=== PATIENT | female | born 1980 | race Caucasian/White ===

== ENCOUNTER 2018-10-14 05:52 | Day surgery (SDC) | payer BC ==
[2018-10-13 15:32] VITALS: BMI 28.1
[~2018-10-14] VITALS: Ht 160 cm; Wt 73.1 kg
[2018-10-14] VITALS (11 sets, daily range): BP systolic 102–120; BP diastolic 54–77; PULSE 64–98; RESP 11–20; Ht 160 cm; Wt 73.1 kg
[~2018-10-14 05:52] MED LIST: MULTI PO
[2018-10-14] MEDS ORDERED: SOD CHLORIDE 0.9% 1,000 ML IV ONE (06:00)
[2018-10-14] MEDS ORDERED: CEFAZOLIN 2 GM/50 ML (PMX) 50 ML IVPB SCH (06:00)
[2018-10-14] MEDS ORDERED: BUPIVACAINE 0.25% (MPF) 30 ML INJ ONE (06:34)
--- NOTE | 2018-10-14 07:35 | PREAC ---
Date/Time of Note Date/Time of Note DATE: 10/14/18 TIME: 07:34 Anesthesia Eval and Record Evaluation Time Pre-Procedure Interview DATE: 10/14/18 TIME: 07:34 Age 38 Sex female NPO: 8 hrs Preoperative diagnosis gallstones Planned procedure lap choly Past Medical History Past Medical History: None Surgery & Anesthesia Issues No known issue Meds Anticoagulation: No Beta Yohannes within 24 hr: No Reason Beta Yohannes not given: Pt. not on B-Yohannes Reported Medications Multivitamins* (Theragran*) 1 Tab Tab, 1 TAB PO DAILY, TAB 10/14/18 Current Medications Cefazolin Sodium/ Dextrose 50 ml @ 100 mls/hr PRE-OP IVPB ; Start 10/14/18 at 06:00; Stop 10/14/18 at 18:00 Sodium Chloride 1,000 ml @ 75 mls/hr [id number] ONCE IV Last administered on 10/14/18at 06:45; Admin Dose 75 MLS/HR; Start 10/14/18 at 06:00; Stop 10/14/18 at 19:19 Meds reviewed: Yes Allergies Coded Allergies: latex (Verified Allergy, Unknown, BREAKOUT, 10/14/18) Allergies Reviewed: Yes Labs/Studies Labs Reviewed: Reviewed by anesthesiologist Result Diagram: 10/14/18 0635 10/14/18 0635 Laboratory Tests 10/14/18 06:35 test: Negative Pre-procedure Exam Last vitals Vital Signs Date Temp Pulse Resp B/P (MAP) Pulse Ox O2 O2 Flow FiO2 Time Delivery Rate 10/14/18 96.6 74 18 102/54 96 Room Air 07:05 (70) Airway: Adequate mouth opening, Adequate thyromental dist Mallampati: Mallampati III Teeth: Normal Lung: Normal Heart: Normal ASA Physical Status ASA physical status: 1 Emergency: None Pre-operative Attestations Prior to commencing anesthesia and surgery, the patient was re-evaluated, there was verification of: *The patient's identity *The results of appropriate recent lab work and preoperative vital signs *The above evaluation not changing prior to induction *Anesthetic plan, risk benefits, alternative and complications discussed with patient/family; questions answered; patient/family understands, accepts and wishes to proceed. ROBEL KELLEY DO Oct 14, 2018 07:35
[2018-10-14] MEDS ORDERED: ROPIVACAINE 0.5 % 30 ML VIAL ONE (07:41)
[2018-10-14] MEDS ORDERED: ROCURONIUM 50 MG INJ ONE (07:41)
[2018-10-14] MEDS ORDERED: FENTAnyl 250MCG INJ ONE (07:41)
[2018-10-14] MEDS ORDERED: PROPOFOL 200 MG INJ ONE (07:41)
[2018-10-14] MEDS ORDERED: LIDOCAINE 1% (MDV) 20 ML INJ ONE (07:41)
[2018-10-14] MEDS ORDERED: SUGAMMADEX SODIUM 200 MG/2 ML VIAL IV ONE (07:41)
[2018-10-14] MEDS ORDERED: MIDAZOLAM 1 MG/ML 2 ML INJ ONE (07:41)
[2018-10-14] MEDS ORDERED: HYDROmorphONE 1 MG/5 ML IV SYRINGE IV PRN ×3 (08:00)
--- NOTE | 2018-10-14 08:45 | OPR ---
Date/Time of Note Date/Time of Note DATE: 10/14/18 TIME: 08:42 Operative Report Procedure Date: Oct 14, 2018 Preoperative Diagnosis symptomatic gallstones Postoperative Diagnosis same Operation/Procedure Performed laparoscopic cholecystectomy Surgeon see signature line Access Spec none Anesthesia Type: general Estimated Blood Loss: 0 - 10 ml's Transfusion none Specimen gallbladder Grafts/Implants none Complications none Pt Condition Post Procedure: stable Indications This is a 38-year-old female with some tender gallstones. Risks alternatives benefits and personal were discussed the patient. Patient expressed understanding and consents to the operation. Procedure Description Patient is taken to the OR and prepped and draped in usual sterile fashion. Surgical timeout was performed. IV antibiotics given. Infraumbilical incision was made transversely with a 15 blade. Dissection with cautery was carried out the fascia. The fascia was grasped with [place]'s and divided with curved Mcclure scissors. 0 Vicryl use this was placed into the fascia. Infante trocar is introduced. Pneumoperitoneum is established. Midepigastric 12 mm optical trochars placed under direct visualization. Right upper quadrant upper flank 5 mm optical trochars were placed under direct visualization. Upon initial inspection there are some adhesions to the gallbladder which are taken down bluntly. The gallbladder was distended and fdc intrahepatic. Initial dome down approach was taken to allow mobilization of the gallbladder. The gallbladder was then retracted using a cephalad and lateral direction. [place] graspers were used to dissect the cystic duct and cystic artery. The cystic duct appeared thickened and was divided with a 35 mm echelon vessel stapler after the critical view was established. Cystic artery was divided to close proximal clip distal and the division was performed laparoscopic scissors. The gallbladder was taken of the gallbladder bed. Good hemostasis status. The gallbladder is retrieved Endo Catch bag. Suction irrigation was used to suction out the area. Once again good hemostasis established. All ports were removed under direct visualization. 0 Vicryl sutures tied down. Skin is closed and skin janine. A tap block was provided by the anesthesiology to begin the case. Dry dressings were applied. Jeffery SCHULTZ Oct 14, 2018 08:45
[2018-10-14] MEDS ORDERED: HYDROCODONE/APAP (5/325) TAB PO ONE (09:00)
== END 2018-10-14 10:41 | disposition home or self-care (01) ==
LOC: SDS 05:52
PROVIDERS: ATTEND Surgery
DX: K80.10 Calculus of gallbladder with chronic cholecystitis without obstruction (principal)
CPT/HCPCS: 47562; 80053; 85025; 85610; 85730; 88304; J0690; Z7512; Z7610; J2250; J2795; J3010